=== PATIENT | female | born 1985 | race Caucasian/White ===

== ENCOUNTER → 2019-01-28 | Outpatient (CLI) | payer OTHER ==
[~2019-01-28] MED LIST: APAP500; DERMOPLAST SPRA56 ML; HYDROCORTISONE 01 OZ; IBUPROFEN 600600 M1; LANOLIN56 GM; PRENATAL PO; SENNA PO; TUCKS MEDICATE1 EAC1
== END ==
LOC: CAT 14:03
DX: Z13.6 Encounter for screening for cardiovascular disorders (principal); E78.00 Pure hypercholesterolemia, unspecified; I25.10 Atherosclerotic heart disease of native coronary artery without angina pectoris